=== PATIENT | female | born 1965 ===

== ENCOUNTER 2021-04-01 09:18 | Outpatient (CLI) | payer BC ==
[2021-04-01] MEDS ORDERED: Iopamidol 370 76% 100 ML VIAL ONE (12:00)
== END 2021-04-01 09:19 | disposition home or self-care (01) ==
LOC: CT 09:18
PROVIDERS: ATTEND Nurse Practitioner Family
DX: R10.9 Unspecified abdominal pain (principal)
CPT/HCPCS: 74177; Q9967